=== PATIENT | male | born 1965 | race Caucasian/White ===

== ENCOUNTER → 2018-09-19 13:12 | Outpatient (CLI) | payer SELFPAY ==
--- NOTE | 2018-09-19 13:18 | CT_ITS ---
STUDY: CT CHEST WITHOUT CONTRAST REASON FOR EXAM: Male, 53 years old. Chest pain. Family history of ischemic heart disease. Former smoker. Chest over read examination. RADIATION DOSAGE (If Supplied By Facility): CTDIvol = ( 12.19 ) mGy, DLP = ( 219.42 ) mGycm TECHNIQUE: Transaxial imaging was performed without the administration of intravenous contrast material. Individualized dose optimization techniques were used for this CT. COMPARISON: None. FINDINGS: Mild degree of groundglass appearance in the anterior aspect of the right middle lobe suggestive of possible chronic changes or infiltration. Mild increased markings at the lung bases with small cystic spaces slightly more prominent on the right side. There is no demonstrated pleural abnormality. There are calcifications of the coronary arteries. There are multiple small lymph nodes within the mediastinum, which are normal in size and morphology most compatible with reactive lymph hyperplasia. Normal hilar regions. Normal unenhanced pulmonary arteries. There is scattered atherosclerotic calcification of the aortic. Normal osseous structures. Fatty infiltration of the liver. Small hiatal hernia. CT/Limited Chest CT w/CCTA IMPRESSION: Groundglass appearance in the right middle lobe as well as mild increased markings at the lung bases suggestive of scarring. Minimal changes seen in the lateral aspect of the lingular segment of the left upper lobe. Electronically Signed: Main Hernandez MD at 14:01 EST Tel [phone], Service support ,
[2018-09-19 13:32] VITALS: BP 132/88; PULSE 57; RESP 16; O2SAT 96; BMI 32.1
--- NOTE | 2018-09-19 17:48 | CA.SCORE ---
Calcium Scoring Date of Study:: 09/19/18 Coronary Calcium Scoring: Calcium score. High-resolution computed tomographic images of the chest were performed on 09/19/2018. With particular attention paid to the coronary arteries. Images from the examination were analyzed for the presence and extent of coronary artery calcification using coronary calcification quantification software. The patient tolerated the procedure well and there were no complications. The results of the coronary calcification analysis are noted below. Left main coronary artery 73.9. Left anterior descending artery 119. Left circumflex artery 0. Right coronary artery 63.3. Total Agagston Score-261 The above is suggestive of moderate plaque burden with probable moderate nonobstructive disease noted
--- OUTSIDE RECORDS SUMMARY | 2018-11-05 09:17 | XMS RPT_ITS ---
:1965 Author Organization [facility] Care Team Providers Name Role Phone LAKISHA GUAJARDO, DR. CORNELL Howell Attending Unavailable CHANDAN GRANADO Primary Care Unavailable LAKISHA GUAJARDO, DR. CORNELL Howell Attending Unavailable CHANDAN GRANADO Primary Care Unavailable Bria, [place] Attending Unavailable Bria, Gregory Referring Unavailable Vannesa Chandan Primary Care Unavailable Bria, Gregory Consulting Unavailable Audrey Lovell Attending Unavailable Bria, [place] Attending Unavailable Emiliano Morgan Referring Unavailable Bria, [place] Attending Unavailable Bria, [place] Referring Unavailable Vannesa Chandan Primary Care Unavailable PROBLEMS PROBLEMS DATE TYPE CONDITION / CODE ATTENDING STATUS SOURCE 09/19/2018 Unknown E78.5 - Bria, Gregory Active [place] Hyperlipidemia, Community unspecified / Hospital E78.5(ICD-10) Repository PROCEDURES PROCEDURES No Procedure Records FoundRESULTS RESULTS CBC Collected: 10/22/2018 Status: F Source: [facility] 3:57 PM [facility] REPOSITORY TYPE CODE TESTS RESULT OUT OF REFERENCE UNITS RANGE LAB WBC(LOINC) 4.60-10.80 10 3/mcL WBC 8.50 LAB RBCCT(LOINC 4.04-6.13 10 6/mcL ) RBC 5.20 LAB HGB(LOINC) 14.0-18.0 G/dL Hgb 16.1 LAB HCT(LOINC) 42.0-52.0 % Hct 47.4 LAB MCV(LOINC) 80.0-94.0 fL MCV 91.2 LAB MCH(LOINC) 27.0-31.2 pg MCH 30.9 LAB MCHC(LOINC) 31.8-35.4 G/dL MCHC 33.9 LAB RDW(LOINC) 11.5-14.5 % RDW 14.1 LAB PLT(LOINC) 130-400 10 3/mcL Platelet 254 LAB MPV(LOINC) 7.4-10.4 fL MPV 10.0 Performed By: #### CBC, ADIFF, ANEU #### [address] [address] #### BMP, GFR #### [address] [address] .AUTO DIFF Collected: 10/22/2018 Status: F Source: [facility] 3:57 PM [facility] REPOSITORY TYPE CODE TESTS RESULT OUT OF REFERENCE UNITS RANGE LAB MISAEL(LOINC) 37.0-80.0 % Neutrophil % 59.6 LAB LYM(LOINC) 10.0-50.0 % Lymphocyte % 26.4 LAB MON(LOINC) 1.7-13.0 % Monocyte % 9.6 LAB EO(LOINC) 0.0-7.0 % Eosinophil % 3.3 LAB BAS(LOINC) 0.0-2.5 % Basophil % 1.1 LAB ABLYM(LOIN 0.77-3.85 10 3/mcL C) Lymphocyte, 2.30 Absolute LAB GISSELL(LOINC 0.15-1.00 10 3/mcL ) Monocyte, 0.80 Absolute LAB AEOS(LOINC 0.00-0.40 10 3/mcL ) Eosinophil, 0.30 Absolute LAB ABAS(LOINC 0.00-0.19 10 3/mcL ) Basophil, 0.10 Absolute Performed By: #### CBC, ADIFF, ANEU #### [address] [address] #### BMP, GFR #### [place] [address] .NEUABS Collected: 10/22/2018 Status: F Source: [facility] 3:57 [facility] REPOSITORY TYPE CODE TESTS RESULT OUT OF REFERENCE UNITS RANGE LAB ANEU(LOINC) 2.85-6.16 10 3/mcL Neutrophil, 5.10 Absolute Performed By: #### CBC, ADIFF, ANEU #### [address] [address] #### BMP, GFR #### [place] [address] BMP Collected: 10/22/2018 Status: F Source: [facility] 3:57 [facility] REPOSITORY TYPE CODE TESTS RESULT OUT OF REFERENCE UNITS RANGE LAB GLU(LOINC) 70-105 mg/dL Glucose Level 96 LAB NA(LOINC) 136-145 mmol/L Sodium Level 139 LAB K(LOINC) 3.5-5.1 mmol/L Potassium Level 4.3 LAB CL(LOINC) 98-107 mmol/L Chloride 104 LAB CO2(LOINC) 22-29 mmol/L CO2 27 LAB EBAL(LOINC mEq/L ) Electrolyte Balance 8.0 LAB BUN(LOINC) 7-18 mg/dL BUN High 23 LAB CRE(LOINC) 0.70-1.30 mg/dL Creatinine Lvl (s) 1.14 LAB BC(LOINC) 7-27 ratio BUN/Creatinine 20 Ratio LAB CA(LOINC) 8.4-10.2 mg/dL Calcium Lvl 9.9 Performed By: #### CBC, ADIFF, ANEU #### [facility] [address] [place], [place] [address] #### BMP, GFR #### [facility] [address] [place] [address] .GFR Collected: 10/22/2018 Status: F Source: [facility] 3:57 PM [facility] REPOSITORY TYPE CODE TESTS RESULT OUT OF REFERENCE UNITS RANGE LAB GFRAA(LOINC ml/min/1.73 ) sqm GFR [address] Result Comment: GFR Population mean for , Non- Americans Ages 20-29 = 116 mL/min/1.73 sq.m. Ages 30-39 = 107 mL/min/1.73 sq.m. Ages 40-49 = 99 mL/min/1.73 sq.m. Ages 50-59 = 93 mL/min/1.73 sq.m. Ages 60-69 = 85 mL/min/1.73 sq.m. Ages 70+ = 75 mL/min/1.73 sq.m. Chronic Kidney Disease: Less than 60 mL/min/1.73 square meters End Stage Renal Disease: Less than 15 mL/min/1.73 square meters LAB GFRNO(LOINC) ml/min/1.73sqm GFR Non- 67 Result Comment: GFR Population mean for , Non- Americans Ages 20-29 = 116 mL/min/1.73 sq.m. Ages 30-39 = 107 mL/min/1.73 sq.m. Ages 40-49 = 99 mL/min/1.73 sq.m. Ages 50-59 = 93 mL/min/1.73 sq.m. Ages 60-69 = 85 mL/min/1.73 sq.m. Ages 70+ = 75 mL/min/1.73 sq.m. Chronic Kidney Disease: Less than 60 mL/min/1.73 square meters End Stage Renal Disease: Less than 15 mL/min/1.73 square meters Performed By: #### CBC, ADIFF, ANEU #### [facility] [address] [place], [place] [address] #### BMP, GFR #### [facility] [address] [place] [id number] Observed: 09/19/2018 Status: F Source: [place] W/CCTA 1:28 PM [facility] Imaging Services [address] [place] [address] w/CCTA MR#: [id number] Acct: [id number] Name: ROMAN BALLESTEROS Rep #: [id number] : 1965 M 53 From: Main Hernandez MD PCP: Chandan Granado DO Status: REG CLI Study: Limited Chest CT w/CCTA Date of Exam: 09/19/18 Exam# [id number] Ordering Dr: Gregory Fraser MD STUDY: CT CHEST WITHOUT CONTRAST REASON FOR EXAM: Male, 53 years old. Chest pain. Family history of ischemic heart disease. Former smoker. Chest over read examination. RADIATION DOSAGE (If Supplied By Facility): CTDIvol = ( 12.19 ) mGy, DLP = ( 219.42 ) mGycm TECHNIQUE: Transaxial imaging was performed without the administration of intravenous contrast material. Individualized dose optimization techniques were used for this CT. COMPARISON: None. FINDINGS: Mild degree of groundglass appearance in the anterior aspect of the right middle lobe suggestive of possible chronic changes or infiltration. Mild increased markings at the lung bases with small cystic spaces slightly more prominent on the right side. There is no demonstrated pleural abnormality. There are calcifications of the coronary arteries. There are multiple small lymph nodes within the mediastinum, which are normal in size and morphology most compatible with reactive lymph hyperplasia. Normal hilar regions. Normal unenhanced pulmonary arteries. There is scattered atherosclerotic calcification of the aortic. Normal osseous structures. Fatty infiltration of the liver. Small hiatal hernia. CT/Limited Chest CT w/CCTA IMPRESSION: Groundglass appearance in the right middle lobe as well as mild increased markings at the lung bases suggestive of scarring. Minimal changes seen in the lateral aspect of the lingular segment of the left upper lobe. Electronically Signed: Main Hernandez MD at 14:01 EST Tel [phone], Service support , CC: Gregory Fraser MD; Chandan Granado DO Armorer Technician: Signed CARDIOLOGY VISIT Observed: 07/16/2018 Status: F Source: [place] REPORT 4:29 PM [facility] [address] [place] [address] OFFICE VISIT Date of Service: 07/16/18 MR#: [id number] Acct: [id number] Name: ROMAN BALLESTEROS Rep #: [id number] : 1965 Provider: Gregory Fraser MD Age/Sex: 53/M Location[place] [facility] [place] Status: Signed HPI HPI Chief Complaint: Follow-up visit. Details: ROMAN BALLESTEROS, is a 53 M who presents to the office today for a follow-up visit. He is a gentleman with a family history of coronary artery disease, hyperlipidemia who returns for routine follow-up visit. As you know he has had a history of hyperlipidemia and has had difficulty tolerating statins. More recently he has been on a small dose of rosuvastatin which she has been able to tolerate quite well. He denies any chest pain or shortness breath or paroxysmal nocturnal dyspnea pedal edema he has had no neck arm or jaw discomfort suggest angina his physical exam demonstrates clear lung sierra regular rate and rhythm and no pedal edema. Intake Vital Signs07/16/18 Height 5 ft 11 in 07/16/18 Weight: 235 lb 07/16/18 Body Mass Index (BMI) 32.8 07/16/18 Blood Pressure 122/84 H 07/16/18 Blood Pressure Location Lt brachial Intake Visit Reasons: 1 Y FU (we r/s from 07-30) Master Technician Required: No Accompanied by: none Is patient in pain?: No Allergies Sulfa (Sulfonamide Antibiotics) Allergy (Verified 07/16/18 16:16) Hives tetracycline Allergy (Verified 07/16/18 16:16) Hives amoxicillin [From Augmentin] Adverse Reaction (Verified 07/16/18 16:16) Nausea clavulanic acid [From Augmentin] Adverse Reaction (Verified 07/16/18 16:16) Nausea pravastatin [From Pravachol] Adverse Reaction (Verified 07/16/18 16:16) myalgias Medications multivitamin tablet 1 tab PO DAILY 07/12/18 [History Confirmed 07/16/18] omega-3 fatty acids 1,000 mg capsule 1,000 mg PO DAILY 07/12/18 [History Confirmed 07/16/18] omega-3 fatty acids 1,000 mg capsule 1,000 mg PO DAILY 07/12/18 [History Confirmed 07/16/18] rosuvastatin 20 mg tablet 20 mg PO DAILY 07/12/18 [History Confirmed 07/16/18] PFSH Medical History Hyperlipidemia (Chronic) Anxiety and depression (Chronic) Obesity (Chronic) Renal cell carcinoma (Chronic) Surgical History History of nephrectomy (Resolved) Family History Father CAD (coronary artery disease) CABG, Valve Surgery Mother CAD (coronary artery disease) CABG 2005 Social History Smoking Status: Former smoker ROS Const Const: Negative for fatigue, weakness, night sweats, excessive sweating, frequent falls, headache(s) or daytime sleepiness Eyes Eyes: Negative for loss of peripheral vision, transient loss of vision, blind spots, double vision or blurry vision ENT ENT: Negative for headache(s), dizziness, balance problems, Nosebleed/epistaxis, tongue swelling or lip swelling Cardio Chest Pain: No Palpitations: No Edema: None Muscle aches with walking: None Resp Respiratory: Negative for SOB at rest, SOB orthopnea\SOB lying down, Cough, paroxysmal nocturnal dyspnea or SOB with activity GI GI: Negative nausea, vomiting, heartburn, black,tarry stools or bright, red blood in stools : Negative for hematuria Musc Musc: Negative for balance problems, muscle aches/ myalgia, muscle weakness or joint pain Skin Skin: Negative non-healing lesions, unusual bruising or rash Neuro Neuro: Negative for weakness, frequent falls, headache(s), double vision, dizziness, lightheadedness, orthostatic symptoms, blurry vision or lack of coordination [place] Hematologic/Lymphatic: Negative for easy bruising or easy bleeding Endo Endo: Negative for fatigue, excessive sweating, cold intolerance, heat intolerance, increased thirst/drinking or hair loss Psych Psych: Negative for anxiety or depression Allergy Allergy/Immunology: Negative for throat swelling, Negative for tongue swelling, Negative for hives, Negative for rash, Negative for lip swelling Cardiology Exam Const Appearance: cooperative, healthy appearing, well developed, well groomed and no acute distress Nutritional Appearance: well nourished and average body habitus Orientation: alert, awake and oriented x3 Head Head: normal to inspection, normocephalic and atraumatic Ears: hearing grossly normal bilaterally and external ears normal Nose: external nose normal, nasal mucous membranes and turbinates normal, nares normal, septum normal, no nasal discharge Face and Sinus: face symmetric Mouth: oral mucosae normal, tongue normal, oropharynx normal and moist mucous membranes Teeth and gingiva: dentition normal Throat: posterior oropharynx normal, tonsils normal and uvula midline Eyes General: appearance normal, both eyes and all related structures Eyelids: eyelids normal Conjunctivae: conjunctivae normal Pupils: PERRL, normal by confrontation and accommodation normal EOM: EOM intact bilaterally Neck Neck: normal visual inspection, trachea midline and no JVD JVD: +5 Carotids: normal carotid upstroke and bounding pulses Chest Chest inspection: normal inspection of the chest, symmetric chest movement and normal respiratory effort Auscultation: Bilateral: Clear to Auscultation Cardio Palpation: normal PMI Rate: regular rate Rhythm: regular rhythm Heart sounds: S1 normal, S2 normal and normal, physiologic split S2; negative rub, gallop or murmur GI GI: normal to inspection, soft, no hepatosplenomegaly and bowel sounds present Neuro General: alert, awake, oriented x3, no focal sensory deficit, gait normal and moves all extremities Skin Skin: no rashes or lesions noted Extremities Pulses: Normal: Right Femoral Pulse, Left Femoral Pulse, Right Dorsalis Pedis Pulse, Left Dorsalis Pedis Pulse, Right Posterior Tibial Pulse, Left Posterior Tibial Pulse, Right Radial Pulse, Left Radial Pulse Lower Extremity Edema: None: Bilateral Musculoskel Musculoskeletal: No joint tenderness Psych Psychological: normal affect Assessment AND Plan 1. Hyperlipidemia E78.5 Plan His most recent lipid profile demonstrates a significant improvement with a total triglyceride count of 220, total cholesterol 190 HDL 48 and LDL of 98. I am recommending that we obtain a coronary calcification score for further risk stratification. In terms of his blood pressure appears to be under good control he should continue his current medical therapy without as making any changes. 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) Coding Level of Care Code Off vis,est,level 3 Diagnoses Hyperlipidemia E78.5 Coding Level of Care Code Off vis,est,level 3 Diagnoses Hyperlipidemia E78.5 07/16/18 1629 <Electronically signed by Gregory Fraser MD> Date Gregory Fraser MD Cosigner Signature: Date (if applicable) CC: Emiliano Morgan ALLERGIES ALLERGIES DATE TYPE / CODE NAME / CODE REACTION SEVERITY SOURCE 07/16/2018 Drug Sulfa Hives Unknown [place] Allergy/416 (Sulfonamide Community 568959([facility] Antibiotics)/F001 [facility] ED [place]) 565645(RXNORM) Repository 07/16/2018 Drug tetracycline/F006 Hives Unknown [place] Allergy/416 390736(RXNORM) Community 765936([facility] ED CT) Repository 07/16/2018 Drug clavulanic Nausea Unknown [place] Allergy/416 acid/[id number](R Community 881419([facility] XNORM) [facility] ED CT) Repository 07/16/2018 Drug pravastatin/F0060 MYALGIAS Unknown [place] Allergy/416 09415(RXNORM) Community 325484([facility] ED CT) Repository 07/16/2018 Drug amoxicillin/F0060 Nausea Unknown [place] Allergy/416 13693(RXNORM) Community 093843([facility] ED CT) Repository ENCOUNTERS ENCOUNTERS ADMIT/DISCHARGE ACCOUNT NUMBER ADMITTING ENCOUNTER LOCATION SOURCE CLASS 10/22/2018/10/22/19 [id number] Ambulatory BBuilding:OP [facility] Repository 10/16/2018 [id number] Ambulatory BBuilding:[facility] Repository 09/19/2018 [id number] Ambulatory BMSBuilding: [place] BMS.CF.[facility] Repository 09/19/2018 [id number] Ambulatory [place] [facility] Hospital ding:CT Repository 07/16/2018/07/16/20 [id number] Ambulatory BMSBuilding: [place] 18 BMS.[facility] Repository 07/12/2018 [id number] Ambulatory BMSBuilding: [place] BMS.[facility] Repository PAYERS PAYERS ENCOUNTER GUARANTOR PAYER SUBSCRIBER SOURCE 10/22/2018 [facility] Primary [facility] QUESTDOB[facility] Insurance:MEDICAL PINKLEYDOB: [id number] [id number] Repository LJ INSCOPolicy Number: 3 [address] [id number] [facility] Date:2018-10-22 [id number]: [phone]) BLDG [id number] [phone] SHERRY RICK Name:BPO Box ()Tel: [phone]: [phone], [place] [phone] (WP) [phone] () 749[address]IF: 10/16/2018 [facility] Primary [facility] QUESTDOB: Insurance:SELF PAY PINKLEYDOB: [facility] [id number] INSCOPolicy Number: [id number] Repository LJ Effective 3 MATTHEW [id number] Date:2018-10-16 - [facility] [id number] Name:[id number]: [phone] [phone] SHERRY DESAI ()Tel: [phone]: [phone]) [phone] (HP) 09/19/2018 ROMAN Rocha Primary Insurance:[facility] ROMAN Rocha [place] [id number] PACKAGE PLANPolicy PINKLEYDOB: Community [address] Number: [id number] [id number] Repository 72768Qrc: (330) Date:2018-08-12 [phone] (HP) 09/19/2018 Secondary NOT GIVENUNK [place] Insurance:SELF PAY [facility] Number: Effective Repository Date:2018-09-19 09/19/2018 ROMAN Rocha Primary Insurance:[facility] ROMAN Rocha [place] [id number] PACKAGE PLANPolicy PINKLEYDOB: Community [address] Number: [id number], [place] [id number] Repository 24658Psn: ([phone]) Date:2018-08-12 [phone] () 09/19/2018 Secondary NOT GIVENUNK [place] Insurance:SELF PAY [facility] Number: Effective Repository Date:2018-08-12 07/16/2018 ROMAN Rocha Primary ROMAN Rocha [place] [id number] Insurance:MUTUAL PINKLEYDOB: Community MATTHEW [facility] [id number], [place] EHPPolicy Number: Repository [id number]: [phone] [id number] [phone] (HP) Date:[id number]KG[place]QPX, [place] [address]IB: 07/16/2018 Secondary NOT GIVENUNK [place] Insurance:SELF PAY [facility] Number: Effective Repository Date:2018-06-09 07/12/2018 ROMAN Rocha Primary NOT GIVENUNK [place] [id number] Insurance:SELF PAY Community MATTHEW [place], [place] Number: Effective Repository [id number]: [phone]) Date:2018-07-12 [phone] ()
== END ==
PROVIDERS: Family Provider Preventive Medicine Occupational Medicine; PCP Preventive Medicine Occupational Medicine; Referring Provider Internal Medicine Cardiovascular Disease; Visit Provider Internal Medicine Cardiovascular Disease
DX: Z82.49 Family history of ischemic heart disease and other diseases of the circulatory system (principal)
CPT/HCPCS: 75571; 76380

== ENCOUNTER → 2019-07-23 08:17 | Outpatient (CLI) | payer OTHER, SELFPAY ==
[2018-09-19 13:32] VITALS: BMI 32.1
[2019-07-24 08:44] LABS: Hemoglobin 16.6 g/dL (13.0-16.5); Mean Corp Hgb Conc 33.2 g/dL (32-36); Mean Corpuscular Hgb 30.8 pg (27.0-32.0); Mean Corpuscular Volume 92.8 fL (80-94); Mean Platelet Vol. 11.1 fl (6.2-12.0); Platelet Count 212 K/mm3 (150-450); RBC Distribution Width CV 13.3 % (11.6-14.6); RBC Distribution Width SD 45.2 fl (35.1-43.9); Red Blood Count 5.39 M/mm3 (4.6-6.2); White Blood Count 8.8 K/mm3 (4.4-11.0)
[2019-07-24 09:06] LABS: ALB/GLOB Ratio 1.2 RATIO (0.9-2.4); AST(SGOT) 37 U/L (15-37); Alanine Aminotransfer ALT/SGPT 89 U/L (16-61); Alkaline Phosphatase 72 U/L (45-117); Anion Gap 9 (5-15); BUN 20 mg/dL (7-18); BUN/Creat Ratio 16.1 RATIO (10-20); Calcium,Total 9.1 mg/dL (8.5-10.1); Chloride 108 mmol/L (98-107); Cholesterol 194 mg/dL (200); Creatinine, Serum 1.24 mg/dL (0.70-1.30); EST Glomerular Filtration Rate 64 mL/min (>60); Est Glom Filt Rate - Afr Amer 78 mL/min (>60); Globulin 3.3 g/dL (2.2-4.2); Glucose 107 mg/dL (74-106); High Density Lipoprotein 42 mg/dL; PSA,Total - Annual Screen 0.57 ng/mL (0.00-4.00); Potassium 4.6 mmol/L (3.5-5.1); Protein, Total 7.3 g/dL (6.4-8.2); Sodium Level 140 mmol/L (136-145); Thyroid Stim Hormone (TSH) 1.37 uIU/mL (0.358-3.74); Triglycerides 244 mg/dL; Very Low Density Lipoprotein 49 mg/dL (5-40)
== END ==
PROVIDERS: Family Provider Preventive Medicine Occupational Medicine; PCP Preventive Medicine Occupational Medicine; Referring Provider Nurse Practitioner Family; Visit Provider Nurse Practitioner Family
DX: Z00.00 Encounter for general adult medical examination without abnormal findings (principal); C64.9 Malignant neoplasm of unspecified kidney, except renal pelvis; E78.5 Hyperlipidemia, unspecified; Z12.5 Encounter for screening for malignant neoplasm of prostate
CPT/HCPCS: 80053; 80061; 84153; 84443; 85027; G0103

== ENCOUNTER → 2020-08-30 | Outpatient (CLI) | payer OTHER, SELFPAY ==
[2020-08-19 14:35] VITALS: BMI 33.7
[2020-08-30 10:35] LABS: ALB/GLOB Ratio 1.1 RATIO (0.9-2.4); AST(SGOT) 34 U/L (15-37); Alanine Aminotransfer ALT/SGPT 72 U/L (16-61); Albumin, Serum 3.8 g/dL (3.2-5.0); Alkaline Phosphatase 68 U/L (45-117); Anion Gap 6 (5-15); BUN 15 mg/dL (7-18); BUN/Creat Ratio 11.6 RATIO (10-20); Calcium,Total 9.3 mg/dL (8.5-10.1); Chloride 108 mmol/L (98-107); Cholesterol 160 mg/dL (200); Creatinine, Serum 1.29 mg/dL (0.70-1.30); EST Glomerular Filtration Rate 61 mL/min (>60); Est Glom Filt Rate - Afr Amer 74 mL/min (>60); Globulin 3.5 g/dL (2.2-4.2); Glucose 106 mg/dL (74-106); High Density Lipoprotein 43 mg/dL; Potassium 4.2 mmol/L (3.5-5.1); Protein, Total 7.3 g/dL (6.4-8.2); Sodium Level 141 mmol/L (136-145); Triglycerides 169 mg/dL; Very Low Density Lipoprotein 34 mg/dL (5-40)
== END | disposition home or self-care (01) ==
PROVIDERS: PCP Preventive Medicine Occupational Medicine; Referring Provider Internal Medicine Cardiovascular Disease; Visit Provider Internal Medicine Cardiovascular Disease
DX: C64.9 Malignant neoplasm of unspecified kidney, except renal pelvis (principal); E78.5 Hyperlipidemia, unspecified; Z82.49 Family history of ischemic heart disease and other diseases of the circulatory system
CPT/HCPCS: 80053; 80061

== ENCOUNTER → 2021-08-12 | Outpatient (CLI) | payer OTHER, SELFPAY | END | disposition home or self-care (01) | PROVIDERS: PCP Preventive Medicine Occupational Medicine; Visit Provider Preventive Medicine Occupational Medicine | DX: Z01.84 Encounter for antibody response examination (principal) | CPT/HCPCS: 86769 ==